=== PATIENT | female | born 1950 | race Caucasian/White ===

== ENCOUNTER 2017-05-26 12:37 | Outpatient (CLI) | payer OTHER, MEDICARE ==
[2017-05-26 14:24] LABS: BASOPHILS % (AUTO) 0.7 % (0-1); EOSINOPHILS # (AUTO) 0.2 X10'3 (0-0.9); EOSINOPHILS % (AUTO) 3.2 % (0-6); HEMATOCRIT 36.9 % (35.0-45.0); HEMOGLOBIN 12.8 g/dl (12.0-16.0); LYMPHOCYTES # (AUTO) 1.9 X10'3 (1.1-4.8); LYMPHOCYTES % (AUTO) 33.9 % (21-51); MEAN CORPUSCULAR HEMOGLOBIN 32.6 PG (27.0-31.0); MEAN CORPUSCULAR HGB CONC 34.8 % (33.0-36.5); MEAN CORPUSCULAR VOLUME 93.7 FL (78-98); MEAN PLATELET VOLUME 8.9 FL (7.4-10.4); MONOCYTES # (AUTO) 0.4 X10'3 (0-0.9); MONOCYTES % (AUTO) 6.9 % (2-12); NEUTROPHILS % (AUTO) 55.3 % (42-75); PLATELET COUNT 238 X10'3 (140-440); RED BLOOD COUNT 3.94 X10'6 (4.20-5.60); RED CELL DISTRIBUTION WIDTH 13.1 % (11.5-14.5); WHITE BLOOD COUNT 5.5 X10'3 (4.5-11.0)
[2017-05-26 14:38] LABS: ALANINE AMINOTRANSFERASE 22 U/L (12-78); ALBUMIN 3.9 G/DL (3.4-5.0); ALBUMIN/GLOBULIN RATIO 1.1 (1.1-1.5); ALKALINE PHOSPHATASE 55 IU/L (46-116); ANION GAP 9 (8-16); ASPARTATE AMINO TRANSFERASE 15 U/L (10-37); BILIRUBIN,TOTAL 0.4 MG/DL (0.1-1.0); BLOOD UREA NITROGEN 21 MG/DL (7-18); BUN/CREATININE RATIO 23.1 (6.6-38.0); CALCIUM 8.7 MG/DL (8.5-10.1); CHLORIDE 106 MMOL/L (99-107); CREATININE 0.91 MG/DL (0.40-0.90); GLUCOSE 96 MG/DL (70-104); SODIUM 143 MMOL/L (135-145); TOTAL CARBON DIOXIDE 28.2 MMOL/L (24-32); TOTAL PROTEIN 7.4 G/DL (6.4-8.2); eGFR 62 ML/MIN
== END 2017-05-26 23:59 | disposition home or self-care (01) ==
LOC: LAB 12:37
PROVIDERS: ATTEND Student in an Organized Health Care Education/Training Program
DX: I10 Essential (primary) hypertension (principal)
CPT/HCPCS: 36415; 80053; 85025

== ENCOUNTER 2018-10-26 07:58 | Outpatient (CLI) | payer OTHER ==
[2018-10-26 08:28] LABS: BASOPHILS % (AUTO) 0.8 % (0-1); EOSINOPHILS # (AUTO) 0.2 X10'3 (0-0.9); EOSINOPHILS % (AUTO) 5.3 % (0-6); HEMATOCRIT 40.2 % (35.0-45.0); HEMOGLOBIN 13.7 g/dl (12.0-16.0); LYMPHOCYTES # (AUTO) 1.9 X10'3 (1.1-4.8); LYMPHOCYTES % (AUTO) 39.6 % (21-51); MEAN CORPUSCULAR HEMOGLOBIN 33.5 PG (27.0-31.0); MEAN CORPUSCULAR VOLUME 98.6 FL (78-98); MEAN PLATELET VOLUME 9.1 FL (7.4-10.4); MONOCYTES # (AUTO) 0.4 X10'3 (0-0.9); MONOCYTES % (AUTO) 8.6 % (2-12); NEUTROPHILS # (AUTO) 2.1 X10'3 (1.8-7.7); NEUTROPHILS % (AUTO) 45.7 % (42-75); PLATELET COUNT 217 X10'3 (140-440); RED BLOOD COUNT 4.08 X10'6 (4.20-5.60); RED CELL DISTRIBUTION WIDTH 13.2 % (11.5-14.5); WHITE BLOOD COUNT 4.7 X10'3 (4.5-11.0)
[2018-10-26 08:52] LABS: ALANINE AMINOTRANSFERASE 20 U/L (12-78); ALBUMIN 4.1 G/DL (3.4-5.0); ALBUMIN/GLOBULIN RATIO 1.3 (1.1-1.5); ALKALINE PHOSPHATASE 66 IU/L (46-116); ANION GAP 7 (8-16); ASPARTATE AMINO TRANSFERASE 18 U/L (10-37); BILIRUBIN,TOTAL 0.4 MG/DL (0.1-1.0); BLOOD UREA NITROGEN 19 MG/DL (7-18); CALCIUM 8.3 MG/DL (8.5-10.1); CHLORIDE 105 MMOL/L (99-107); CHOL/HDL RATIO 4.3 (0.00-4.99); CHOLESTEROL 215 MG/DL (0-200); CREATININE 1.12 MG/DL (0.40-0.90); GLUCOSE 95 MG/DL (70-104); HDL CHOLESTEROL 50 MG/DL (35-60); LDL CHOLESTEROL 132 MG/DL (50-100); POTASSIUM 4.1 MMOL/L (3.5-5.1); SODIUM 142 MMOL/L (135-145); TOTAL CARBON DIOXIDE 30.1 MMOL/L (24-32); TOTAL PROTEIN 7.2 G/DL (6.4-8.2); TRIGLYCERIDES 121 MG/DL (20-135); eGFR 48 ML/MIN
== END 2018-10-26 23:59 | disposition home or self-care (01) ==
LOC: LAB 07:58
PROVIDERS: ATTEND Nurse Practitioner Family
DX: E78.5 Hyperlipidemia, unspecified (principal); I10 Essential (primary) hypertension; L65.9 Nonscarring hair loss, unspecified
CPT/HCPCS: 36415; 80053; 80061; 84439; 84443; 85025

== ENCOUNTER 2018-11-08 13:15 | Outpatient (CLI) | payer OTHER | END 2018-11-08 23:59 | disposition home or self-care (01) | LOC: RAD 13:15 | PROVIDERS: ATTEND Nurse Practitioner Family | DX: I10 Essential (primary) hypertension (principal); Z82.49 Family history of ischemic heart disease and other diseases of the circulatory system | CPT/HCPCS: 70544 ==

== ENCOUNTER 2019-07-28 09:05 | Outpatient (CLI) | payer OTHER | END 2019-07-28 23:59 | disposition home or self-care (01) | LOC: RAD 09:05 | PROVIDERS: ATTEND Surgery | DX: K81.9 Cholecystitis, unspecified (principal) | CPT/HCPCS: 76700 ==

== ENCOUNTER 2019-08-11 07:10 | Outpatient (CLI) | payer OTHER ==
[~2019-08-11] VITALS: Ht 165.1 cm; Wt 70.0 kg
[2019-08-11] MEDS ORDERED: sincalide inj 1.4 MCG in normal saline 100ml IV soln 98.6 ML IV ONE (09:15)
== END 2019-08-11 23:59 | disposition home or self-care (01) ==
LOC: RAD 07:10
PROVIDERS: ATTEND Surgery
DX: K80.20 Calculus of gallbladder without cholecystitis without obstruction (principal)
CPT/HCPCS: 78227; A9537; J2805

== ENCOUNTER 2019-11-14 07:07 | Outpatient (CLI) | payer BC ==
[2019-11-14 08:48] LABS: BASOPHILS # (AUTO) 0.1 X10'3 (0-0.2); BASOPHILS % (AUTO) 1.4 % (0-1); EOSINOPHILS # (AUTO) 0.2 X10'3 (0-0.9); EOSINOPHILS % (AUTO) 2.7 % (0-6); HEMATOCRIT 37.8 % (35.0-45.0); HEMOGLOBIN 12.9 g/dl (12.0-16.0); LYMPHOCYTES # (AUTO) 1.4 X10'3 (1.1-4.8); LYMPHOCYTES % (AUTO) 23.3 % (21-51); MEAN CORPUSCULAR HEMOGLOBIN 33.4 PG (27.0-31.0); MEAN CORPUSCULAR VOLUME 98.2 FL (78-98); MEAN PLATELET VOLUME 9.1 FL (7.4-10.4); MONOCYTES # (AUTO) 0.4 X10'3 (0-0.9); MONOCYTES % (AUTO) 6.1 % (2-12); NEUTROPHILS % (AUTO) 66.5 % (42-75); PLATELET COUNT 233 X10'3 (140-440); RED BLOOD COUNT 3.85 X10'6 (4.20-5.60); RED CELL DISTRIBUTION WIDTH 13.1 % (11.5-14.5); WHITE BLOOD COUNT 6.1 X10'3 (4.5-11.0)
[2019-11-14 08:57] LABS: ALANINE AMINOTRANSFERASE 30 U/L (12-78); ALBUMIN 4.2 G/DL (3.4-5.0); ALBUMIN/GLOBULIN RATIO 1.2 (1.1-1.5); ALKALINE PHOSPHATASE 76 IU/L (46-116); ANION GAP 4 (8-16); ASPARTATE AMINO TRANSFERASE 27 U/L (10-37); BILIRUBIN,TOTAL 0.4 MG/DL (0.1-1.0); BLOOD UREA NITROGEN 19 MG/DL (7-18); BUN/CREATININE RATIO 18.4 (6.6-38.0); CALCIUM 8.5 MG/DL (8.5-10.1); CHLORIDE 101 MMOL/L (99-107); CHOL/HDL RATIO 3.1 (0.00-4.99); CHOLESTEROL 185 MG/DL (0-200); CREATININE 1.03 MG/DL (0.40-0.90); GLUCOSE 127 MG/DL (70-104); HDL CHOLESTEROL 60 MG/DL (35-60); LDL CHOLESTEROL 99 MG/DL (50-100); POTASSIUM 3.7 MMOL/L (3.5-5.1); SODIUM 136 MMOL/L (135-145); TOTAL CARBON DIOXIDE 30.6 MMOL/L (24-32); TOTAL PROTEIN 7.8 G/DL (6.4-8.2); TRIGLYCERIDES 131 MG/DL (20-135); eGFR 53 ML/MIN
== END 2019-11-14 23:59 | disposition home or self-care (01) ==
LOC: LAB 07:07
PROVIDERS: ATTEND Nurse Practitioner Family
DX: Z00.00 Encounter for general adult medical examination without abnormal findings (principal); I10 Essential (primary) hypertension
CPT/HCPCS: 36415; 80053; 80061; 85025

== ENCOUNTER 2019-11-20 07:25 | Outpatient (CLI) | payer BC ==
[2019-11-20 10:04] LABS: AMYLASE 34 U/L (25-115); LIPASE 126 U/L (73-393)
[2019-11-20 15:38] LABS: H PYLORI ANTIBODY NEGATIVE (Neg)
== END 2019-11-20 23:59 | disposition home or self-care (01) ==
LOC: LAB 07:25
PROVIDERS: ATTEND Student in an Organized Health Care Education/Training Program
DX: R10.9 Unspecified abdominal pain (principal)
CPT/HCPCS: 36415; 82150; 82977; 83690; 86677

== ENCOUNTER 2019-12-27 08:26 | Day surgery (SDC) | payer BC ==
[~2019-12-27] VITALS: Ht 165.1 cm; Wt 65.0 kg
[2019-12-27 08:33] VITALS: BP 163/95
[2019-12-27] MEDS ORDERED: LIDOcaine Viscous 15ml cup ONE (08:45)
[2019-12-27] MEDS ORDERED: MIDAZolam 5mg/5ml vial ONE (08:45)
[2019-12-27] MEDS ORDERED: fentaNYL/PF 50MCG/1 ML 2ML syringe ONE (08:45)
[2019-12-27] MEDS ORDERED: OMEP40CA13 PO (08:54)
[2019-12-27] MEDS ORDERED: PROG100C11 PO (08:56)
[2019-12-27] MEDS ORDERED: HYDR12.55 PO (08:57)
[2019-12-27] MEDS ORDERED: OLME40TA18 PO (09:13)
[2019-12-27] MEDS ORDERED: ESTR42.510 TOP (09:14)
[2019-12-27] MEDS ORDERED: MOME45CR3 TOP (09:16)
[2019-12-27] MEDS ORDERED: CYCL-394 PO (09:17)
[2019-12-27] MEDS ORDERED: ALPR-624 PO (09:17)
[2019-12-27 10:09] VITALS: BP 153/90
[2019-12-27 10:19] VITALS: BP 157/83
[2019-12-27 10:29] VITALS: BP 159/77
[2019-12-27 10:30] VITALS: BP 159/82
== END 2019-12-27 10:55 | disposition home or self-care (01) ==
LOC: GI LAB 08:26
PROVIDERS: ATTEND Internal Medicine Gastroenterology
DX: R19.7 Diarrhea, unspecified (principal); R13.10 Dysphagia, unspecified; K52.89 Other specified noninfective gastroenteritis and colitis; K63.89 Other specified diseases of intestine; K63.5 Polyp of colon; K57.30 Diverticulosis of large intestine without perforation or abscess without bleeding; K29.50 Unspecified chronic gastritis without bleeding; K44.9 Diaphragmatic hernia without obstruction or gangrene; K22.2 Esophageal obstruction; Z86.010 Personal history of colon polyps; Z80.0 Family history of malignant neoplasm of digestive organs
CPT/HCPCS: 43239; 43450; 45380; 45385; 99152; 99153; C1773; J2250; J3010; J7040; 43233; A4620

== ENCOUNTER 2020-01-03 07:31 | Outpatient (CLI) | payer BC ==
[~2020-01-03 07:31] MED LIST: ALPR-624 PO; CYCL-394 PO; ESTR42.510 TOP; HYDR12.55 PO; MOME45CR3 TOP; OLME40TA18 PO; OMEP40CA13 PO; PROG100C11 PO
== END 2020-01-03 23:59 | disposition home or self-care (01) ==
LOC: RAD 07:31
PROVIDERS: ATTEND Family Medicine
DX: N28.1 Cyst of kidney, acquired (principal)
CPT/HCPCS: 76775

== ENCOUNTER 2020-01-04 13:54 | Emergency (ER) | payer BC ==
[~2020-01-04] VITALS: Ht 165.1 cm; Wt 66.8 kg
[2020-01-04 14:49] LABS: BASOPHILS % (AUTO) 0.6 % (0-1); EOSINOPHILS # (AUTO) 0.1 X10'3 (0-0.9); EOSINOPHILS % (AUTO) 1.6 % (0-6); HEMATOCRIT 37.3 % (35.0-45.0); HEMOGLOBIN 12.6 g/dl (12.0-16.0); LYMPHOCYTES # (AUTO) 1.7 X10'3 (1.1-4.8); LYMPHOCYTES % (AUTO) 29.3 % (21-51); MEAN CORPUSCULAR HEMOGLOBIN 32.8 PG (27.0-31.0); MEAN CORPUSCULAR HGB CONC 33.8 g/dL (33.0-36.5); MEAN PLATELET VOLUME 8.9 FL (7.4-10.4); MONOCYTES # (AUTO) 0.3 X10'3 (0-0.9); NEUTROPHILS # (AUTO) 3.6 X10'3 (1.8-7.7); NEUTROPHILS % (AUTO) 62.5 % (42-75); PLATELET COUNT 246 X10'3 (140-440); RED BLOOD COUNT 3.85 X10'6 (4.20-5.60); RED CELL DISTRIBUTION WIDTH 13.5 % (11.5-14.5); WHITE BLOOD COUNT 5.7 X10'3 (4.5-11.0)
[2020-01-04 15:03] LABS: ALANINE AMINOTRANSFERASE 24 U/L (12-78); ALBUMIN 4.3 G/DL (3.4-5.0); ALBUMIN/GLOBULIN RATIO 1.1 (1.1-1.5); ALKALINE PHOSPHATASE 82 IU/L (46-116); ANION GAP 8 (8-16); ASPARTATE AMINO TRANSFERASE 17 U/L (10-37); BILIRUBIN,TOTAL 0.5 MG/DL (0.1-1.0); BLOOD UREA NITROGEN 23 MG/DL (7-18); BUN/CREATININE RATIO 17.4 (6.6-38.0); CALCIUM 9.4 MG/DL (8.5-10.1); CHLORIDE 106 MMOL/L (99-107); CREATININE 1.32 MG/DL (0.40-0.90); GLUCOSE 101 MG/DL (70-104); POTASSIUM 3.3 MMOL/L (3.5-5.1); SODIUM 142 MMOL/L (135-145); TOTAL PROTEIN 8.2 G/DL (6.4-8.2); eGFR 40 ML/MIN
[2020-01-04] MEDS ORDERED: potassium Cl 20 mEq SR tablet PO STA (15:11)
--- NOTE | 2020-01-04 16:33 | NUR ---
patient states that she took her blood pressure medications today. primary rn manpreeet informed who informed dr michel
--- NOTE | 2020-01-04 16:34 | NUR ---
notified dr michel about pt bp 208/100 and 196/100 as per pt is fine and tell her to take bp meds when she gets ome .notified francisco jimenez .pt is aware of the plan denies any concern as per pt she has taken bp meds today and stated that she will be fine .
--- NOTE | 2020-01-04 16:34 | NUR ---
i informed dr michel of pressure of 196/100 on left arm: "SEND HER HOME" PATIENT IS DRIVING SELF HOME
[2020-01-04 16:35] VITALS: BP 196/100
--- NOTE | 2020-01-04 16:44 | NUR ---
I EDUCATED THE PATIENT THAT IT WOULD BE BEST IF SHE HAD SOMEONE CAME AND PICKED HER UP.
== END 2020-01-04 16:52 | disposition home or self-care (01) ==
LOC: ER 13:54
DX: N18.9 Chronic kidney disease, unspecified (principal); I12.9 Hypertensive chronic kidney disease with stage 1 through stage 4 chronic kidney disease, or unspecified chronic kidney disease; R42 Dizziness and giddiness; Z79.899 Other long term (current) drug therapy
CPT/HCPCS: 36415; 80053; 82948; 84484; 85025; 93005; 99284

== ENCOUNTER 2020-09-18 07:22 | Outpatient (CLI) | payer BC ==
[~2020-09-18] VITALS: Ht 165.1 cm; Wt 70.0 kg
[~2020-09-18 07:22] MED LIST changes: -OMEP40CA13 PO; +OMEP40CA21 PO
[2020-09-18] MEDS ORDERED: regadenoson 0.4mg/5ml syringe IV ONE (08:10)
[2020-09-18 09:09] VITALS: BP 178/84
[2020-09-18 09:18] VITALS: BP 164/77
[2020-09-18 09:19] VITALS: BP 168/80
[2020-09-18 09:20] VITALS: BP 171/81
[2020-09-18 09:21] VITALS: BP 165/86
[2020-09-18 09:22] VITALS: BP 174/84
== END 2020-09-18 23:59 | disposition home or self-care (01) ==
LOC: RAD 07:22
PROVIDERS: ATTEND Internal Medicine Cardiovascular Disease
DX: I25.10 Atherosclerotic heart disease of native coronary artery without angina pectoris (principal)
CPT/HCPCS: 78452; 93017; A9500; J2785

== ENCOUNTER 2021-01-01 07:47 | Outpatient (CLI) | payer BC ==
[2021-01-01 09:28] LABS: BASOPHILS # (AUTO) 0.1 X10'3 (0-0.2); BASOPHILS % (AUTO) 1.8 % (0-1); EOSINOPHILS # (AUTO) 0.1 X10'3 (0-0.9); EOSINOPHILS % (AUTO) 3.6 % (0-6); HEMATOCRIT 38.6 % (35.0-45.0); HEMOGLOBIN 12.9 g/dl (12.0-16.0); LYMPHOCYTES # (AUTO) 1.3 X10'3 (1.1-4.8); LYMPHOCYTES % (AUTO) 34.4 % (21-51); MEAN CORPUSCULAR HEMOGLOBIN 31.1 PG (27.0-31.0); MEAN CORPUSCULAR HGB CONC 33.4 g/dL (33.0-36.5); MEAN PLATELET VOLUME 9.6 FL (7.4-10.4); MONOCYTES # (AUTO) 0.3 X10'3 (0-0.9); MONOCYTES % (AUTO) 8.2 % (2-12); PLATELET COUNT 214 X10'3 (140-440); RED BLOOD COUNT 4.15 X10'6 (4.20-5.60); WHITE BLOOD COUNT 3.8 X10'3 (4.5-11.0)
[2021-01-01 10:10] LABS: ALANINE AMINOTRANSFERASE 34 U/L (12-78); ALBUMIN 3.9 G/DL (3.4-5.0); ALKALINE PHOSPHATASE 75 IU/L (46-116); ANION GAP 8 (8-16); ASPARTATE AMINO TRANSFERASE 26 U/L (10-37); BILIRUBIN,TOTAL 0.3 MG/DL (0.1-1.0); BLOOD UREA NITROGEN 16 MG/DL (7-18); BUN/CREATININE RATIO 14.4 (6.6-38.0); CALCIUM 8.6 MG/DL (8.5-10.1); CHLORIDE 108 MMOL/L (99-107); CHOL/HDL RATIO 3.1 (0.00-4.99); CHOLESTEROL 209 MG/DL (0-200); CREATININE 1.11 MG/DL (0.40-0.90); GLUCOSE 92 MG/DL (70-104); HDL CHOLESTEROL 67 MG/DL (35-60); LDL CHOLESTEROL 118 MG/DL (50-100); POTASSIUM 4.1 MMOL/L (3.5-5.1); SODIUM 145 MMOL/L (135-145); TOTAL CARBON DIOXIDE 29.1 MMOL/L (24-32); TOTAL PROTEIN 7.9 G/DL (6.4-8.2); TRIGLYCERIDES 91 MG/DL (20-135); eGFR 49 ML/MIN
== END 2021-01-01 23:59 | disposition home or self-care (01) ==
LOC: LAB 07:47
PROVIDERS: ATTEND Student in an Organized Health Care Education/Training Program
DX: Z00.00 Encounter for general adult medical examination without abnormal findings (principal); R79.9 Abnormal finding of blood chemistry, unspecified; M12.9 Arthropathy, unspecified; R53.83 Other fatigue; I10 Essential (primary) hypertension
CPT/HCPCS: 36415; 80053; 80061; 85025